=== PATIENT | female | born 1965 | race Caucasian/White ===

== ENCOUNTER 2016-04-23 13:27 | Emergency (ER) | payer BC, OTHER ==
[~2016-04-23] VITALS: Ht 162.6 cm; Wt 111.0 kg
[~2016-04-23 13:27] MED LIST: BCPILLS PO; LISI-788 PO
[2016-04-23 13:29] VITALS: TEMP 37; Ht 162.6 cm; Wt 111.0 kg
[2016-04-23] MEDS ORDERED: SODIUM CHLORIDE 0.9% 1000ML 1,000 ML IV STA (13:42)
[2016-04-23] MEDS ORDERED: OPTIRAY 320 IV PRN (14:00)
[2016-04-23 14:01] LABS: BASO % 0.2 %; BASO ABS # 0.03 K/uL (0-0.2); COMPLETE YES; EOS % 0.7 %; HEMATOCRIT 42.9 % (37-47); IG% 0.2 %; LYMPH % 23.9 %; LYMPH ABS # 3.08 K/uL (1.2-3.4); MEAN CELL VOLUME 86.3 fL (80-100); MEAN CORPUSCULAR HEMOGLOBIN 29.6 pg (25-34); MEAN CORPUSCULAR HGB CONC 34.3 g/dl (32-36); MEAN PLATELET VOLUME 8.7 fL (7.4-10.4); MONO % 6.7 %; NEUT % 68.3 %; PLATELET COUNT 333 K/uL (130-400); RED BLOOD COUNT 4.97 M/uL (4.2-5.4); WHITE BLOOD COUNT 12.91 K/uL (4.8-10.8)
--- NOTE | 2016-04-23 14:10 | EMERGENCY ROOM VISIT NOTE ---
History Report prepared by Argenis: Kira Kitchen Under the Supervision of: Dr. Victor Manuel Spencer M.D. First contact with patient: 13:34 Chief Complaint: GI ASSESSMENT Stated Complaint: RECTAL BLEEDING, STOMACH PAIN/CRAMPING/PRESSURE Nursing Triage Summary: pt here with lower abd pains since last pm and diarrhea. pt states having bright red blood now, not mixed with stool. denies any clots. History of Present Illness The patient is a 50 year old female who presents to the Emergency Room with complaints of persistent rectal bleeding that started last night. She is also experiencing intermittent abdominal cramping that is typically relieved when she has a bowel movement. Additionally, she is experiencing abdominal bloating. The patient denies diarrhea. She states that she feels like she is not having as many bowel movements as she usually does, but she is eating normally. The patient still has her gallbladder and appendix. She denies any history of diverticulosis, diverticulitis, IBS, or Crohn's disease. She also denies any recent antibiotic use. The patient has never had a colonoscopy. Source of History: patient Onset: last night Position: other (rectum) Quality: other (rectal bleeding) Timing: other (persistent) Associated Symptoms: + abdominal pain (cramping, intermittent), No diarrhea Note: abdominal bloating Review of Systems See HPI for pertinent positives & negatives. A total of 10 systems reviewed and were otherwise negative. Past Medical & Surgical Medical Problems: (1) Hypertension Family History Cancer Hypertension Kidney stones Social History Smoking Status: Never Smoker Alcohol Use: none Drug Use: none Marital Status: Housing Status: lives with significant other Occupation Status: employed Current/Historical Medications Scheduled Diphenhydramine Hcl (Benadryl Allergy), 1 TAB PO QPM Lisinopril/Hctz (Zestoretic 20MG/25MG), 1 TAB PO DAILY Allergies Coded Allergies: No Known Allergies (Verified , 04/26/02) Physical Exam Vital Signs Date Time Temp Pulse Resp B/P Pulse Ox O2 Delivery O2 Flow Rate FiO2 04/23/16 15:27 79 18 127/80 99 Room Air 04/23/16 13:57 86 04/23/16 13:29 37.0 116 16 154/96 93 Room Air Physical Exam GENERAL: Patient is a healthy-appearing well-nourished female HEAD: Normocephalic atraumatic EYES: Ocular movements intact pupils equal and react to light OROPHARYNX mucous membranes are moist no exudates present no erythema or edema present NECK: Supple no nuchal rigidity CHEST: Good equal expansion LUNGS: Clear and equal to auscultation CARDIAC: Normal S1 and S2 ABDOMEN: Soft nontender no guarding BACK: No CVA tenderness RECTAL: Small hemorrhoid present. Minor amount of blood present. EXTREMITIES: No pain upon palpation normal muscle strength in all groups no clubbing cyanosis or edema NEURO: Patient is following commands is answering questions appropriately. Alert and oriented x3 Cranial Nerves 2-12 grossly intact Medical Decision & Procedures ER Provider Diagnostic Interpretation: CT results as stated below per my review and radiologist interpretation: CT ABD/PELVIS IV CONTRAST ONLY IMPRESSION: 1. Colonic wall thickening with mild infiltration the pericolonic fat extending from the mid transverse colon to the rectum. The findings are indicative of a nonspecific colitis. 2. Mildly prominent aortocaval lymph nodes, likely reactive 3. 28 mm hypodensity within the right hepatic lobe, statistically representing a cyst 4. Mild dilatation of both renal collecting systems, possibly secondary to mild chronic UPJ type obstructions 5. No evidence of bowel obstruction. No evidence of free air Electronically signed by: Colin Kent M.D. 04/23/2016 2:44 PM Dictated Date/Time: 04/23/2016 2:38 PM Laboratory Results 04/23/16 13:50 Red Blood Count 4.97, Mean Corpuscular Volume 86.3, Mean Corpuscular Hemoglobin 29.6, Mean Corpuscular Hemoglobin Concent 34.3, Mean Platelet Volume 8.7, Neutrophils (%) (Auto) 68.3, Lymphocytes (%) (Auto) 23.9, Monocytes (%) (Auto) 6.7, Eosinophils (%) (Auto) 0.7, Basophils (%) (Auto) 0.2, Neutrophils # (Auto) 8.82, Lymphocytes # (Auto) 3.08, Monocytes # (Auto) 0.86, Eosinophils # (Auto) 0.09, Basophils # (Auto) 0.03 04/23/16 13:50 Test 04/23/16 13:50 04/23/16 14:18 White Blood Count 12.91 K/uL (4.8-10.8) Red Blood Count 4.97 M/uL (4.2-5.4) Hemoglobin 14.7 g/dL (12.0-16.0) Hematocrit 42.9 % (37-47) Mean Corpuscular Volume 86.3 fL (80-100) Mean Corpuscular Hemoglobin 29.6 pg (25-34) Mean Corpuscular Hemoglobin Concent 34.3 g/dl (32-36) Platelet Count 333 K/uL (130-400) Mean Platelet Volume 8.7 fL (7.4-10.4) Neutrophils (%) (Auto) 68.3 % Lymphocytes (%) (Auto) 23.9 % Monocytes (%) (Auto) 6.7 % Eosinophils (%) (Auto) 0.7 % Basophils (%) (Auto) 0.2 % Neutrophils # (Auto) 8.82 K/uL (1.4-6.5) Lymphocytes # (Auto) 3.08 K/uL (1.2-3.4) Monocytes # (Auto) 0.86 K/uL (0.11-0.59) Eosinophils # (Auto) 0.09 K/uL (0-0.5) Basophils # (Auto) 0.03 K/uL (0-0.2) RDW Standard Deviation 45.9 fL (36.4-46.3) RDW Coefficient of Variation 14.5 % (11.5-14.5) Immature Granulocyte % (Auto) 0.2 % Immature Granulocyte # (Auto) 0.03 K/uL (0.00-0.02) Est Creatinine Clear Calc Drug Dose 100.2 ml/min Estimated GFR () 97.5 Estimated GFR (Non- 84.1 BUN/Creatinine Ratio 22.7 (10-20) Calcium Level 9.3 mg/dl (8.5-10.1) Total Bilirubin 1.0 mg/dl (0.2-1) Direct Bilirubin mg/dl (0-0.2) Aspartate Amino Transf (AST/SGOT) 22 U/L (15-37) Alanine Aminotransferase (ALT/SGPT) 28 U/L (12-78) Alkaline Phosphatase 95 U/L (45-117) Total Protein 7.9 gm/dl (6.4-8.2) Albumin 3.7 gm/dl (3.4-5.0) Lipase 127 U/L (73-393) Chemistry Specimen Hemolysis Bedside Hemoglobin 15.3 g/dl (12.0-16.0) Bedside Hematocrit 45 % (37-47) Bedside Sodium 137 mEq/L (135-144) Bedside Potassium 7.2 mEq/L (3.3-5.0) Bedside Chloride 103 mEq/L (101-112) Bedside Total CO2 30 mEq/l (24-31) Anion Gap 13.0 mmol/L (16-25) Bedside Blood Urea Nitrogen 29 mg/dl (7-18) Bedside Creatinine 0.7 mg/dl (0.6-1.3) Bedside Glucose (other) 88 mg/dl (70-99) Bedside Ionized Calcium (Kaylynn) 1.05 mmol/l (1.12-1.32) Date/Time Source Procedure Growth Status 04/23/16 13:45 Stool C.difficile Toxin B Gene (PCR) - Final No C. difficile toxin B gene detected Complete Labs reviewed by ED physician. Medications Administered Medications (Trade) Dose Ordered Sig/Gene Route Start Time Stop Time Status Last Admin Dose Admin Sodium Chloride (Nss 1000ml) 1,000 ml @ 999 mls/hr Q1H1M STAT IV 04/23/16 13:42 04/23/16 14:42 DC 04/23/16 14:12 999 MLS/HR ED Course 1337: Past medical records reviewed. The patient was evaluated in room B7. A complete history and physical examination was performed. 1342: Ordered Sodium Chloride 1000 ml @ 999 mls/hr IV 1440: Upon reexamination the patient is doing well. I discussed results and treatment plan with the patient. She verbalizes agreement and understanding. The patient is ready for discharge. Medical Decision Differential diagnosis: Etiologies such as diverticulosis, AVM, coagulopathy, colitis, inflammatory bowel disease, malignancy, Sparkle-Wright tear, esophagitis, peptic ulcer disease , variceal bleed, gastritis, epistaxis, fissure, hemorrhoids, as well as others were entertained. This is a 50-year-old female who presents emergency department complaining of abdominal cramping. The patient passed a small amount of blood here in the emergency department. This was sent for culture. Despite this the patient's hemoglobin is stable. On rectal examination the patient does not have a large amount of blood. Based on all these findings along with the patient's CAT scan I felt that the patient can be safely discharged home pending stool culture results. I stressed the need for follow-up with gastroenterology. Patient was in agreement with the treatment plan. Impression Primary Impression: Rectal bleed Scribe Attestation The scribe's documentation has been prepared under my direction and personally reviewed by me in its entirety. I confirm that the note above accurately reflects all work, treatment, procedures, and medical decision making performed by me. Departure Information Dispostion Home / Self-Care Referrals Tad Doshi PA-C (PCP) Forms HOME CARE DOCUMENTATION FORM, IMPORTANT VISIT INFORMATION Patient Instructions Bleeding Rectal, My [facility] Additional Instructions Follow up with Dr Samuel's office Use probiotic yogurt Return if bleeding becomes severe or you are feeling weak or dizzy Culture results are usually available in approx 48 hours You have been examined and treated today on an emergency basis only. This is not a substitute for, or an effort to provide, complete comprehensive medical care. It is impossible to recognize and treat all injuries or illnesses in a single emergency department visit. It is therefore important that you follow up closely with Dr Doshi. Call as soon as possible for an appointment. Thank you for your time and consideration. I look forward to speaking with you again soon. Please don't hesitate to call us if you have any questions.
[2016-04-23] MEDS ORDERED: DIPH1TAB PO (14:18)
[2016-04-23 14:34] LABS: ALKALINE PHOSPHATASE 95 U/L (45-117); ALT/SGPT 28 U/L (12-78); AST/SGOT 22 U/L (15-37); BLOOD UREA NITROGEN 18 mg/dl (7-18); BUN/CREATININE RATIO 22.7 (10-20); CALCIUM 9.3 mg/dl (8.5-10.1); CARBON DIOXIDE 24 mmol/L (21-32); CHLORIDE 104 mmol/L (98-107); CREATININE 0.81 mg/dl (0.60-1.20); GLUCOSE 85 mg/dl (70-99); POTASSIUM 3.6 mmol/L (3.5-5.1); SODIUM 141 mmol/L (136-145)
[2016-04-23 14:34] LABS: ISTAT CREATININE 0.7 mg/dl (0.6-1.3); ISTAT HEMOGLOBIN 15.3 g/dl (12.0-16.0); ISTAT IONIZED CALCIUM 1.05 mmol/l (1.12-1.32)
--- NOTE | 2016-04-23 14:45 | DIAGNOSTIC IMAGING REPORT ---
CT ABD/PELVIS IV CONTRAST ONLY CLINICAL HISTORY: Rectal bleeding and cramping abdominal pain COMPARISON STUDY: None. TECHNIQUE: Following the IV administration of 120 mL of [id number]-320, CT scan of the abdomen and pelvis was performed from the lung bases to the proximal femurs. Images are reviewed in the axial, sagittal, and coronal planes. IV contrast was administered without complication. CT DOSE: 1657.99 mGy.cm FINDINGS: Lower chest: The heart is normal in size and configuration, without pericardial effusion. The lung bases and pleural spaces are clear. Liver: There is a 28 mm right lobe hypodensity, likely representing a cyst. There is a second 5 mm right lobe hypodensity likely representing a cyst. There is mild hepatic steatosis. Gallbladder: Unremarkable. Spleen: Normal in size and attenuation. Pancreas: Unremarkable. Adrenal glands: Unremarkable. Kidneys: There is mild dilatation of both renal collecting systems possibly secondary to mild chronic UPJ type obstruction. There is no ureteral dilatation. No calculi are visualized. Bowel: There are no transition zones indicate bowel obstruction. There are no findings to indicate acute appendicitis. There is colonic wall thickening with mild infiltration the pericolonic fat extending from the mid transverse colon to the level of the rectum. The findings are consistent with a colitis. Peritoneum: There is no intraperitoneal free air or abdominal ascites. Vasculature: The abdominal aorta is normal in course and caliber. Adenopathy: There are mildly prominent aortocaval lymph nodes, statistically reactive. Pelvic viscera: The bladder, and pelvic viscera are unremarkable. Skeletal structures: No destructive osseous lesions are seen. IMPRESSION: 1. Colonic wall thickening with mild infiltration the pericolonic fat extending from the mid transverse colon to the rectum. The findings are indicative of a nonspecific colitis. 2. Mildly prominent aortocaval lymph nodes, likely reactive 3. 28 mm hypodensity within the right hepatic lobe, statistically representing a cyst 4. Mild dilatation of both renal collecting systems, possibly secondary to mild chronic UPJ type obstructions 5. No evidence of bowel obstruction. No evidence of free air Electronically signed by: Colin Kent M.D. 04/23/2016 2:44 PM Dictated Date/Time: 04/23/2016 2:38 PM
[2016-04-23 15:27] VITALS: BP 127/80; PULSE 79; O2SAT 99
== END 2016-04-23 15:27 | disposition home or self-care (01) ==
LOC: C.EDB 13:28
DX: K62.5 Hemorrhage of anus and rectum (principal); R10.9 Unspecified abdominal pain; I10 Essential (primary) hypertension; Z79.899 Other long term (current) drug therapy; Z82.49 Family history of ischemic heart disease and other diseases of the circulatory system; Z84.1 Family history of disorders of kidney and ureter